=== PATIENT | female | born 1965 | race Caucasian/White ===

== ENCOUNTER 2018-06-20 05:45 | Inpatient (IN) | payer OTHER ==
[~2018-06-20] VITALS: Ht 172.7 cm; Wt 62.5 kg
[2018-06-20] MEDS ORDERED: LACTATED RINGERS 1,000 ML IV SCH (06:16)
[2018-06-20] MEDS ORDERED: no meds per pt (06:17)
[2018-06-20 06:19] VITALS: BP_SYST 154; BP_SYST 188; BP_DIAS 108; BP_DIAS 99
[2018-06-20 06:41] LABS: BASOPHILS # (AUTO) 0.02 x10^3/uL (0-0.1); BASOPHILS % (AUTO) 0 % (0-1); EOSINOPHILS # (AUTO) 0.04 x10^3/uL (0-0.4); EOSINOPHILS % (AUTO) 1 % (1-7); LYMPHOCYTES # (AUTO) 1.74 x10^3/uL (1-3.4); LYMPHOCYTES % (AUTO) 25 % (22-44); MD NO; MEAN CORPUSCULAR HGB CONC 34.1 g/dL (32.4-35.8); MEAN CORPUSCULAR VOLUME 102.7 fL (80-100); MONOCYTES # (AUTO) 0.44 x10^3/uL (0.2-0.8); MONOCYTES % (AUTO) 6 % (2-9); NEUTROPHILS # (AUTO) 4.69 x10^3/uL (1.8-6.8); NEUTROPHILS % (AUTO) 68 % (42-75); PLATELET COUNT 198 x10^3/uL (130-400); RED BLOOD COUNT 4.67 x10^6/uL (3.82-5.3)
[2018-06-20 06:53] LABS: ANION GAP 6 mmol/L (5-15); CALCIUM 8.3 mg/dL (8.5-10.1); CHLORIDE 107 mmol/L (98-107); CREATININE 0.58 mg/dL (0.55-1.02)
[2018-06-20 07:07] LABS: INTERNATIONAL NORMALIZED RATIO 1.01 (0.93-1.1); PROTHROMBIN TIME 10.7 Seconds (9.6-11.5)
[2018-06-20 07:25] LABS: MICROSCOPIC NOT IND
[2018-06-20 07:29] LABS: CULTURE INDICATED? NO
[2018-06-20] MEDS ORDERED: BUPIVACAINE/PF 0.5% ONE (07:29)
[2018-06-20] MEDS ORDERED: THROMBIN 5,000 UNIT VIAL TP ONE (07:30)
[2018-06-20] MEDS ORDERED: MANNITOL PMX 20% 500 ML ONE (07:30)
[2018-06-20] MEDS ORDERED: BACITRACIN OINT 500U/GM, 15 GM ONE (07:30)
[2018-06-20] MEDS ORDERED: BACITRACIN 50,000 UNIT ONE (07:30)
[2018-06-20] MEDS ORDERED: EPINEPHRINE 1 MG/ML, 1ML ONE (07:30)
[2018-06-20] MEDS ORDERED: FENTANYL PF 100 MCG/2ML ONE ×4 (07:51→10:51)
[2018-06-20] MEDS ORDERED: MIDAZOLAM 1 MG/ML, 2ML ONE (07:51)
[2018-06-20] MEDS ORDERED: ACETAMINOPHEN 500 MG TABLET PO STA (08:09)
[2018-06-20] MEDS ORDERED: LEVETIRACETAM 500 MG TABLET PO STA (08:09)
[2018-06-20] MEDS ORDERED: ACETAMINOPHEN 500 MG TABLET ONE (08:14)
[2018-06-20] MEDS ORDERED: ROCURONIUM 10MG/ML,5ML ONE (08:28)
[2018-06-20] MEDS ORDERED: ONDANSETRON 2MG/ML, 2ML ONE (08:28)
[2018-06-20] MEDS ORDERED: METOCLOPRAMIDE 5 MG/ML, 2ML ONE (08:28)
[2018-06-20] MEDS ORDERED: DEXAMETHASONE 4 MG/ML, 1ML ONE (08:28)
[2018-06-20] MEDS ORDERED: CEFAZOLIN 1,000 MG ONE (08:28)
[2018-06-20] MEDS ORDERED: PROPOFOL 10 MG/ML, 20ML ONE (08:28)
[2018-06-20] MEDS ORDERED: ACETAMINOPHEN 500 MG TABLET PO ONE (08:30)
[2018-06-20] MEDS ORDERED: FENTANYL PF 100 MCG/2ML IV PRN (10:30)
[2018-06-20] MEDS ORDERED: MIDAZOLAM 1 MG/ML, 2ML IV PRN (10:30)
[2018-06-20] MEDS ORDERED: ONDANSETRON 2MG/ML, 2ML IVPush PRN (10:30)
[2018-06-20] MEDS ORDERED: MEPERIDINE/PF 25MG/0.5ML IVPush PRN (10:30)
[2018-06-20] MEDS ORDERED: OXYcodone 5 MG/5 ML ORAL.SOL UDC PO PRN (10:30)
[2018-06-20] MEDS ORDERED: LABETALOL 5MG/ML, 20ML IV PRN (10:30)
[2018-06-20] MEDS ORDERED: HYDROmorphone 1 MG/ML, 1ML IV PRN (10:30)
[2018-06-20] MEDS ORDERED: OXYcodone 5 MG/5 ML ORAL.SOL UDC ONE (10:51)
[2018-06-20] MEDS ORDERED: LABETALOL 20 MG/4 ML ONE (10:56)
[2018-06-20] MEDS ORDERED: LORazepam 1MG TABLET PO PRN (12:30)
[2018-06-20] MEDS ORDERED: LEVETIRACETAM 500 MG in SODIUM CHLORIDE 0.9% 100 ML IV SCH (12:30)
[2018-06-20] MEDS ORDERED: morphine SULFATE 10 MG/ML, 1ML IV PRN (12:30)
[2018-06-20] MEDS ORDERED: PROMETHAZINE 25 MG/ML, 1ML IM PRN (12:30)
[2018-06-20] MEDS ORDERED: ONDANSETRON 2MG/ML, 2ML IV PRN (12:30)
[2018-06-20] MEDS ORDERED: DIPHENHYDRAMINE 50 MG CAPSULE PO PRN (12:30)
[2018-06-20] MEDS ORDERED: BISACODYL 10 MG SUPP PR PRN (12:30)
[2018-06-20] MEDS ORDERED: MAGNESIUM HYDROXIDE 8%, 30ML UDC PO PRN (12:30)
[2018-06-20] MEDS ORDERED: DIPHENHYDRAMINE 50 MG/ML, 1ML IVPush PRN (12:30)
[2018-06-20] MEDS ORDERED: DIPHENHYDRAMINE 50 MG/ML, 1ML IM PRN (12:30)
[2018-06-20] MEDS ORDERED: OXYcodone/APAP 5/325MG TABLET PO PRN (12:30)
[2018-06-20] MEDS ORDERED: METHOCARBAMOL 750 MG TABLET PO PRN (12:30)
[2018-06-20] MEDS: LABETALOL 5MG/ML, 20ML IV SCH ×2 (12:50→20:12)
[2018-06-20] MEDS: DEXAMETHASONE 4 MG/ML, 1ML IVPush SCH ×2 (12:50→20:11)
[2018-06-20] MEDS: D5%-0.9% NACL 1,000 ML IV SCH ×2 (13:00→23:00)
[2018-06-20] MEDS ORDERED: POTASSIUM CHLORIDE 20 MEQ, MAGNESIUM SULFATE 1 GM, THIAMINE 200 MG, FOLIC ACID 1 MG, MV... IV SCH (13:00)
[2018-06-20] MEDS: CEFAZOLIN PMX 1GM/50ML 50 ML IVPB SCH ×2 (13:20→20:12)
[2018-06-20] MEDS ORDERED: ALBUTEROL/IPRATROPIUM 2.5MG/0.5MG, 3 ML HHN PRN (13:30)
[2018-06-20] MEDS: HYDROcodone/APAP 5/325 TABLET PO PRN (17:13)
[2018-06-20] MEDS: LEVETIRACETAM 500 MG in SODIUM CHLORIDE 0.9% 100 ML IV SCH (20:03)
[2018-06-20] MEDS: LORazepam 1MG TABLET PO PRN (20:12)
[2018-06-20] MEDS ORDERED: LEVETIRACETAM 500 MG TABLET PO SCH (21:00)
[2018-06-21] MEDS: HYDROcodone/APAP 5/325 TABLET PO PRN ×2 (00:33→09:10)
[2018-06-21] MEDS: LORazepam 1MG TABLET PO PRN ×4 (02:17→17:26)
[2018-06-21 04:00] VITALS: BP 150/90
[2018-06-21] MEDS: LABETALOL 5MG/ML, 20ML IV SCH (04:35)
[2018-06-21] MEDS: LEVETIRACETAM 500 MG in SODIUM CHLORIDE 0.9% 100 ML IV SCH ×2 (07:57→22:05)
[2018-06-21] MEDS: SENNA/DOCUSATE TABLET PO SCH (07:57)
[2018-06-21] MEDS ORDERED: LORazepam 2 MG/ML, 1ML IV PRN (09:00)
[2018-06-21] MEDS: D5%-0.9% NACL 1,000 ML IV SCH (09:00)
[2018-06-21] MEDS: FOLIC ACID 1 MG TABLET PO SCH (09:10)
[2018-06-21] MEDS: MULTIVITAMIN 1 TABLET PO SCH (09:11)
[2018-06-21] MEDS: THIAMINE 100MG TABLET PO SCH (09:11)
[2018-06-21 15:03] VITALS: BP 154/95
[2018-06-21] MEDS: METOPROLOL TARTRATE 25 MG TABLET PO SCH (17:26)
[2018-06-21 20:00] VITALS: BP 135/88
[2018-06-22] MEDS: HYDROcodone/APAP 5/325 TABLET PO PRN ×3 (01:23→21:01)
[2018-06-22] MEDS: LORazepam 1MG TABLET PO PRN ×2 (01:25→06:51)
[2018-06-22 02:18] VITALS: BP 145/82
[2018-06-22 06:43] VITALS: BP 148/99
[2018-06-22] MEDS: METOPROLOL TARTRATE 25 MG TABLET PO SCH ×2 (06:44→18:21)
[2018-06-22 08:00] VITALS: BP 158/108
[2018-06-22] MEDS: LEVETIRACETAM 500 MG in SODIUM CHLORIDE 0.9% 100 ML IV SCH ×2 (09:17→20:54)
[2018-06-22] MEDS: MULTIVITAMIN 1 TABLET PO SCH (09:18)
[2018-06-22] MEDS: FOLIC ACID 1 MG TABLET PO SCH (09:18)
[2018-06-22] MEDS: SENNA/DOCUSATE TABLET PO SCH (09:18)
[2018-06-22] MEDS: THIAMINE 100MG TABLET PO SCH (09:18)
[2018-06-22 13:06] VITALS: BP 158/99
[2018-06-22 20:39] VITALS: BP 147/91
[2018-06-23 01:34] VITALS: BP 156/97
[2018-06-23 03:52] VITALS: BP 166/97
[2018-06-23] MEDS: LABETALOL 5MG/ML, 20ML IV PRN ×6 (05:35→10:32)
[2018-06-23] MEDS: METOPROLOL TARTRATE 25 MG TABLET PO SCH (05:43)
[2018-06-23] MEDS: HYDROcodone/APAP 5/325 TABLET PO PRN (06:40)
[2018-06-23 08:00] VITALS: BP 174/98
[2018-06-23] MEDS: MULTIVITAMIN 1 TABLET PO SCH (08:08)
[2018-06-23] MEDS: FOLIC ACID 1 MG TABLET PO SCH (08:08)
[2018-06-23] MEDS: SENNA/DOCUSATE TABLET PO SCH (08:08)
[2018-06-23] MEDS: LEVETIRACETAM 500 MG in SODIUM CHLORIDE 0.9% 100 ML IV SCH (08:08)
[2018-06-23] MEDS: THIAMINE 100MG TABLET PO SCH (08:09)
[2018-06-23] MEDS ORDERED: OXYC5TAB3 PO (10:22)
[2018-06-23] MEDS ORDERED: LEVE500T53 PO (10:23)
[2018-06-23] MEDS ORDERED: METO25TA35 PO (10:23)
[2018-06-23 10:56] VITALS: BP 163/98
[2018-06-23 11:18] VITALS: BP 173/92
== END 2018-06-23 11:45 | disposition home or self-care (01) | DRG 25 ==
LOC: EDSEX 05:45 → ORIP 05:45 → CCU 11:30 → 4NOR 06-21 14:41 → DCLOUNGE 06-23 11:25
PROVIDERS: ADMIT Neurological Surgery; ATTEND Neurological Surgery
PROC: 0NU50JZ Supplement Right Temporal Bone with Synthetic Substitute, Open Approach (ICD-10-PCS; 2018-06-20)
PROC: 00B20ZZ Excision of Dura Mater, Open Approach (ICD-10-PCS; principal; 2018-06-20 07:30)
DX: D33.2 Benign neoplasm of brain, unspecified (principal); E43 Unspecified severe protein-calorie malnutrition; F10.239 Alcohol dependence with withdrawal, unspecified; G93.9 Disorder of brain, unspecified; J44.9 Chronic obstructive pulmonary disease, unspecified; F17.210 Nicotine dependence, cigarettes, uncomplicated; I10 Essential (primary) hypertension; M89.9 Disorder of bone, unspecified; R56.9 Unspecified convulsions; Z82.5 Family history of asthma and other chronic lower respiratory diseases
CPT/HCPCS: 36415; 70450; 71045; 80048; 81003; 85025; 85610; 85730; 86850; 86900; 87081; 88305; 88307; 88311; 93005; C1713; G0378; J0171; J0690; J1100; J1953; J2250; J2405; J2704; J3010; J3411; J3475; J3480; J3490; A4648; C1781; J2765; J7030